=== PATIENT | male | born 1990 | race African-American/Black ===

== ENCOUNTER 2016-08-28 19:19 | Emergency (ER) | payer OTHER ==
[~2016-08-28] VITALS: Ht 165.1 cm; Wt 73.3 kg
[2016-08-28 19:23] VITALS: BP 135/79; PULSE 88; TEMP 37.7; Ht 165.1 cm; Wt 73.3 kg
[2016-08-28 19:25] VITALS: O2SAT 96
[2016-08-29] MEDS ORDERED: PROPOFOL IV EMULSION 10 MG/ML 100 ML VIAL IV ONE (17:43)
[2016-08-31] MEDS ORDERED: AMOX875T PO (08:19)
[2016-08-31] MEDS ORDERED: OXYC-57 PO (08:19)
== END 2016-08-28 19:46 | disposition left against medical advice (07) ==
LOC: C.EDB 19:21
DX: J02.9 Acute pharyngitis, unspecified (principal)

== ENCOUNTER 2016-08-29 10:16 | Inpatient (IN) | payer SELFPAY ==
[~2016-08-29] VITALS: Ht 165.1 cm; Wt 72.3 kg
[2016-08-29] MEDS ORDERED: SODIUM CHLORIDE 0.9% 1000ML 1,000 ML IV STA (11:17)
[2016-08-29] MEDS ORDERED: AMPICILLIN/SULBACTAM SOD INJ 3,000 MG in SODIUM CHLORIDE 0.9% 100ML 100 ML IV ONE (11:30)
[2016-08-29] MEDS ORDERED: BENZOCAINE/TETRACAIN/BUTAM CAN 200 APPLN/20 GM CAN EXT STA (11:34)
[2016-08-29] MEDS ORDERED: LIDO/EPINEPHRINE/SOD BICARB 20 ML VIAL INFIL ONE (11:45)
[2016-08-29 11:50] LABS: BASO % 0.2 %; BASO ABS # 0.03 K/uL (0-0.2); COMPLETE YES; EOS % 1.3 %; HEMATOCRIT 38.4 % (42-52); IG% 0.4 %; LYMPH % 9.5 %; LYMPH ABS # 1.85 K/uL (1.2-3.4); MEAN CELL VOLUME 87.1 fL (80-100); MEAN CORPUSCULAR HEMOGLOBIN 30.6 pg (25-34); MEAN CORPUSCULAR HGB CONC 35.2 g/dl (32-36); MEAN PLATELET VOLUME 8.3 fL (7.4-10.4); MONO % 8.6 %; PLATELET COUNT 407 K/uL (130-400); RED BLOOD COUNT 4.41 M/uL (4.7-6.1); WHITE BLOOD COUNT 19.38 K/uL (4.8-10.8)
[2016-08-29 12:09] LABS: BUN/CREATININE RATIO 10.2 (10-20); CALCIUM 9.4 mg/dl (8.5-10.1); CREATININE 0.91 mg/dl (0.60-1.40); POTASSIUM 3.9 mmol/L (3.5-5.1)
[2016-08-29] MEDS: SODIUM CHLORIDE 0.45% 1000ML 1,000 ML IV SCH ×2 (12:45→17:52)
--- NOTE | 2016-08-29 12:50 | HISTORY & PHYSICAL EXAMINATION ---
DATE OF ADMISSION: 08/29/2016 DIAGNOSIS: Acute right peritonsillar abscess. HISTORY OF PRESENT ILLNESS: This 25-year-old -[place] male presented with acute onset of sore throat Saturday, became progressively worse, was seen here yesterday and sent home but again presented this morning with increasing sore throat and was found to have evidence of right peritonsillar abscess. Aspiration in the ER only yielded 0.2 mL of pus, so there must be loculated abscess behind the tonsil and he is being taken to the OR per patient request for I\T\D under general anesthesia. PAST MEDICAL HISTORY: MEDICAL PROBLEMS: None. PREVIOUS SURGERIES: Appendectomy by Dr. Cee in 2010. ALLERGIES: None known. MEDICATIONS: None. FAMILY HISTORY: Negative. SOCIAL HISTORY: Negative. REVIEW OF SYSTEMS: Otherwise negative. PHYSICAL EXAMINATION: GENERAL: WN, WD -[place]in[place]ian male in some distress with sore throat. HEAD: Normocephalic. EYES: Normal. EARS: Tympanic membranes intact with cerumen partially occluding the canals. NOSE: Nasal passages patent. THROAT: Oropharynx shows right soft palate bulging and redness with uvular edema and shift towards the left side. NECK: Supple with 1-2 cm nodes on the right side. HEART: RRR. LUNGS: Clear. ABDOMEN: Soft. GENITOURINARY: Deferred. EXTREMITIES: Full range of motion. IMPRESSION: Right peritonsillar abscess. PLAN: For incision and drainage in the OR.
[2016-08-29] MEDS ORDERED: ONDANSETRON INJ 2 MG/ML 2 ML VIAL IV STA (13:09)
[2016-08-29] MEDS ORDERED: MoRPHine SULFATE 4 MG/ML 1 ML CARP\\VIAL IV STA (13:09)
[2016-08-29] MEDS ORDERED: LIDOCAINE HCL 2% 2 ML VIAL (20MG/ML) ONE (16:01)
[2016-08-29] MEDS ORDERED: PROPOFOL IV EMULSION 10 MG/ML 20 ML VIAL IV ONE ×3 (16:01→18:05)
[2016-08-29] MEDS ORDERED: ONDANSETRON INJ 2 MG/ML 2 ML VIAL ONE (16:01)
[2016-08-29] MEDS ORDERED: DEXAMETHASONE SOD INJ 4 MG/ML VIAL ONE ×2 (16:01→18:05)
[2016-08-29] MEDS ORDERED: SUCCINYLCHOLINE 100MG/5ML SYR IV ONE (16:01)
[2016-08-29] MEDS ORDERED: FENTANYL CITRATE INJ 50 MCG/1 ML 2 ML VIAL ONE ×2 (16:01→17:08)
[2016-08-29] MEDS ORDERED: MIDAZOLAM HCL 1 MG/ML 2ML VIAL ONE ×2 (16:07→17:14)
[2016-08-29] MEDS ORDERED: BUPIVACAINE/EPINEPHRINE 0.5% MPF 1:200,000 30 ML VIAL ONE (16:32)
[2016-08-29] MEDS ORDERED: ONDANSETRON INJ 2 MG/ML 2 ML VIAL IV PRN ×2 (18:00)
[2016-08-29] MEDS ORDERED: FENTANYL CITRATE INJ 50 MCG/1 ML 2 ML VIAL IV PRN (18:00)
[2016-08-29] MEDS ORDERED: MoRPHine SULFATE 10 MG/ML CARP/VIAL IV PRN (18:00)
[2016-08-29] MEDS ORDERED: MoRPHine SULFATE 4 MG/ML 1 ML CARP\\VIAL IV PRN (18:00)
[2016-08-29] MEDS ORDERED: ATROPINE SULFATE 0.1 MG/ML 5ML SYR IV PRN (18:00)
[2016-08-29] MEDS ORDERED: ESMOLOL HCL 10 MG/ML 10 ML VIAL ONE (18:05)
[2016-08-29] MEDS ORDERED: PHENYLEPHRINE 100MCG/ML 5ML SYR ONE (18:05)
--- NOTE | 2016-08-29 18:11 | Anesthesiology Progress Note ---
Anesthesia Progress Note Date of Service Aug 29, 2016. Progress Notes Patient with peritonsillar abscess taken to OR for I&D, after induction we established that we were able to mask ventilate without problem, then with a Denny 2 no view of cords was achieved due to swelling. We again were able to mask ventilate without trouble. A Glidescope 3 was used and he was noted to also have epiglottitis, and due to the swelling from the tonsillar area and the large swollen epiglottis, no view of the glottic opening was possible. Again we were able to mask ventilate the patient. With a Mac 3 blade I was able to achieve a similar view and had a little more room to manipulate a bougie which I was able to pass blindly. An ETT was passed over the bougie without problem, position confirmed with ETCO2 and auscultation. His oxygenation was maintained throughout. Dr Vega performed the I&D of the abscess and due to the epiglottitis we decided to leave the patient intubated, so he was taken uneventfully to the ICU with O2 and monitors. Dr Swanson had already spoken to the ICU physician so he is aware of the situation. Currently stable and intubated in the ICU.
[2016-08-29] MEDS ORDERED: AMPICILLIN/SULBACTAM SOD INJ 3,000 MG in SODIUM CHLORIDE 0.9% 100ML 100 ML IV SCH (18:15)
[2016-08-29] MEDS ORDERED: MIDAZOLAM HCL 5 MG/ML 1 ML VIAL IV PRN (18:15)
[2016-08-29] MEDS ORDERED: FENTANYL 1250MCG/250ML NSS 250 ML IV PRN ×2 (18:15→20:00)
[2016-08-29] MEDS ORDERED: PROPOFOL IV EMULSION 10 MG/ML 100 ML VIAL IV SCH (18:21)
--- NOTE | 2016-08-29 18:42 | EMERGENCY ROOM VISIT NOTE ---
History Report prepared by Scotty: Padmini Norman Under the Supervision of: Dr. Chas Wade M.D. First contact with patient: 10:50 Chief Complaint: SORETHROAT Stated Complaint: SORETHROAT History of Present Illness The patient is a 25 year old male who presents to the Emergency Room with complaints of a persistent sore throat that started a week ago. This sore throat is worse with swallowing. It is worse on the right side. Associated symptoms include increased drooling, mild headaches, body aches, fatigue, and a cough. He also notes changes in his voice. The patient was in the ED yesterday but he left before he was evaluated by a physician because of the wait. The patient denies vomiting. Source of History: patient Onset: A week ago Position: throat Quality: other (sore) Timing: other (Persistent ) Modifying Factors (Worsening): other (Swallowing ) Associated Symptoms: + cough, + headache, No vomiting Note: Additional associated symptoms include: increased drooling, body aches, and fatigue. Review of Systems See HPI for pertinent positives & negatives. A total of 10 systems reviewed and were otherwise negative. Past Medical & Surgical Medical Problems: (1) Bee sting (2) Epiglottitis (3) No Known Active Medical Problems Surgical Problems: (1) History of appendectomy Family History No pertinent family history Social History Smoking Status: Never Smoker Smokeless Tobacco Use: No Alcohol Use: occasionally Drug Use: none Housing Status: lives with roommate Current/Historical Medications No Active Prescriptions or Reported Meds Allergies Coded Allergies: No Known Allergies (Unverified , 08/29/16) Physical Exam Vital Signs Date Time Temp Pulse Resp B/P Pulse Ox O2 Delivery O2 Flow Rate FiO2 08/29/16 15:00 36.7 94 24 136/78 94 Room Air 08/29/16 14:41 94 18 154/74 96 08/29/16 14:34 94 18 154/74 96 Room Air 08/29/16 13:30 102 18 150/82 95 Room Air 08/29/16 11:50 72 18 153/72 98 Room Air 08/29/16 11:05 98 Room Air 08/29/16 10:27 37.5 77 18 130/79 98 Room Air 08/29/16 10:27 98 Room Air Physical Exam Constitutional: Vital signs reviewed. Eyes: Pupils are equal round reactive to light. Conjunctiva are noninjected. ENT: Trismus, swelling to uvula and right peritonsillar region with drooling. Right sided cervical lymphadenopathy with tenderness. Mucous membranes are moist. Respiratory: Clear to auscultation bilaterally. Breath sounds are equal bilaterally. Cardiovascular: Regular rate and rhythm. No rubs or gallops. GI: Soft, nondistended and nontender. Bowel sounds are present. Musculoskeletal: No peripheral edema. Integumentary: No cyanosis. Neurological: The patient is awake and alert. No focal deficits. Psychiatric: Normal affect. Medical Decision & Procedures Laboratory Results 08/29/16 11:37 Red Blood Count 4.41, Mean Corpuscular Volume 87.1, Mean Corpuscular Hemoglobin 30.6, Mean Corpuscular Hemoglobin Concent 35.2, Mean Platelet Volume 8.3, Neutrophils (%) (Auto) 80.0, Lymphocytes (%) (Auto) 9.5, Monocytes (%) (Auto) 8.6, Eosinophils (%) (Auto) 1.3, Basophils (%) (Auto) 0.2, Neutrophils # (Auto) 15.51, Lymphocytes # (Auto) 1.85, Monocytes # (Auto) 1.66, Eosinophils # (Auto) 0.26, Basophils # (Auto) 0.03 08/29/16 11:37 Test 08/29/16 11:37 White Blood Count 19.38 K/uL (4.8-10.8) Red Blood Count 4.41 M/uL (4.7-6.1) Hemoglobin 13.5 g/dL (14.0-18.0) Hematocrit 38.4 % (42-52) Mean Corpuscular Volume 87.1 fL (80-100) Mean Corpuscular Hemoglobin 30.6 pg (25-34) Mean Corpuscular Hemoglobin Concent 35.2 g/dl (32-36) Platelet Count 407 K/uL (130-400) Mean Platelet Volume 8.3 fL (7.4-10.4) Neutrophils (%) (Auto) 80.0 % Lymphocytes (%) (Auto) 9.5 % Monocytes (%) (Auto) 8.6 % Eosinophils (%) (Auto) 1.3 % Basophils (%) (Auto) 0.2 % Neutrophils # (Auto) 15.51 K/uL (1.4-6.5) Lymphocytes # (Auto) 1.85 K/uL (1.2-3.4) Monocytes # (Auto) 1.66 K/uL (0.11-0.59) Eosinophils # (Auto) 0.26 K/uL (0-0.5) Basophils # (Auto) 0.03 K/uL (0-0.2) RDW Standard Deviation 37.5 fL (36.4-46.3) RDW Coefficient of Variation 11.6 % (11.5-14.5) Immature Granulocyte % (Auto) 0.4 % Immature Granulocyte # (Auto) 0.07 K/uL (0.00-0.02) Anion Gap 13.0 mmol/L (3-11) Est Creatinine Clear Calc Drug Dose 106.1 ml/min Estimated GFR () 133.4 Estimated GFR (Non- 115.1 BUN/Creatinine Ratio 10.2 (10-20) Calcium Level 9.4 mg/dl (8.5-10.1) Monoscreen NEG (NEG) Laboratory results as reviewed by me. Medications Administered Medications (Trade) Dose Ordered Sig/Shaun Route Start Time Stop Time Status Last Admin Dose Admin Sodium Chloride 1,000 ml @ 999 mls/hr Q1H1M STAT IV 08/29/16 11:17 08/29/16 12:17 DC 08/29/16 11:39 999 MLS/HR Ampicillin Sodium/ Sulbactam Sodium 3000 mg/Sodium Chloride 108 ml @ 200 mls/hr ONE ONCE IV 08/29/16 11:30 08/29/16 12:02 DC 08/29/16 11:48 200 MLS/HR Sodium Chloride (1/2 Nss 1000ml) 1,000 ml @ 100 mls/hr Q10H IV 08/29/16 12:45 09/28/16 12:44 08/29/16 17:52 100 MLS/HR Morphine Sulfate (MoRPHine SULFATE INJ) 4 mg NOW STAT IV 08/29/16 13:09 08/29/16 13:10 DC 08/29/16 13:32 4 MG Ondansetron HCl (Zofran Inj) 4 mg NOW STAT IV 08/29/16 13:09 08/29/16 13:10 DC 08/29/16 13:31 4 MG Bupivacaine HCl/ Epinephrine Bitart (Sensorcaine/ Epinephrine 0.5% Mpf 1:200,000) 30 ml STK-MED ONCE .ROUTE 08/29/16 16:32 08/29/16 16:34 DC 08/29/16 16:46 5 ML ED Course 1053: The patient was evaluated in room B8. A complete history and physical exam was performed. 1117: Ordered Sodium Chloride 1,000 ml @ 999 mls/hr IV. 1130: Ampicillin Sodium/ Sulbactam Sodium 3,000 mg/ Sodium Chloride 108 ml @ 200 mls/hr IV. 1133: I discussed the patient's case with Dr. Vega (ENT). He will come in at noon to drain the patient's peritonsillar abscess. 1134: Ordered Cetacaine Can 1 appin EXT. 1145: Ordered Lidocaine/ Epinephrine 20 ml INFIL 1234: Dr. Vega was only able to aspirate 2 mm. He will take the patient to the OR later this afternoon. 1303: The patient is requesting more pain medications. He will go to the OR around 4:00. 1309: Ordered Zofran Injection 4 mg IV, Morphine Sulfate 4 mg IV. 1500: The patient is in the OR with Dr. Vega. Medical Decision This is a 25-year-old male who presents with a sore throat. Differential diagnosis includes strep pharyngitis, peritonsillar abscess, infectious mononucleosis, laryngitis, viral syndrome. I did perform a limited focused review of portions of the patient's old chart on the electronic medical record. The patient has had no recent pertinent visits to this hospital. I did evaluate the patient as noted above. On examination the patient has trismus and drooling and appears to have a right peritonsillar abscess. IV access was established. I did treat the patient with Unasyn IV. I did order and review the patient's blood work as noted in the electronic medical record. His white blood cell count is significantly elevated. He was given normal saline IV and morphine and Zofran for pain. I did consult Dr. Vega of ENT. He came into drain the abscess but was only able to get 2 mL of pus and decided that he will take the patient to the operating room for further drainage. Consults Time Called: 1100 Consulting Physician: Dr. Vega (ENT) Returned Call: 1133 I discussed the patient's case with Dr. Vega (ENT). He will come in at noon to drain the patient's peritonsillar abscess. Impression Primary Impression: Peritonsillar abscess Scribe Attestation The scribe's documentation has been prepared under my direct and personally reviewed by me in its entirety. I confirm that the note above accurately reflects all work, treatment, procedures, and medical decision making performed by me. Departure Information Dispostion Being Evaluated By Surgeon Prescriptions No Active Prescriptions or Reported Meds Referrals No Doctor, Assigned (PCP) Patient Instructions My [facility]
--- NOTE | 2016-08-29 18:46 | Critical Care Consultation ---
Critical Care Consultation Date of Consultation: Aug 29, 2016. Attending Physician: Milana Vega M.D. Reason for Consultation: Peritonsillar abscess w/ Epiglottitis s/p I&D History of Present Illness History is limited as patient is s/p intubation. No family is present. This is a 25 y/o M who apparently presented to the ED yesterday with a sore throat. He was not seen by a physician yesterday as he had left AMA (during the ER registration process). He presented to the ED again this morning with worsening sore throat. He was evaluated by ENT in the ED and was noted to have a right sided peritonsillar abscess and epiglottitis. He was not Dyspneic. An attempt was made to drain the abscess in the ED but yielded very little fluid. Decision was made to do an I&D under general anaesthesia. In the OR, 20 cc of pus was drained and cultured. He remained intubated and sedated upon transfer to the ICU No significant PMH Past Medical/Surgical History none- but cannot confirm Family History No pertinent family history unobtainable Social History Smoking Status: Never Smoker Allergies Coded Allergies: No Known Allergies (Unverified , 08/29/16) Home Medications No Active Prescriptions or Reported Meds Current Inpatient Medications Current Inpatient Medications Medications (Trade) Dose Ordered Sig/Shaun Route Start Time Stop Time Status Last Admin Dose Admin Sodium Chloride (1/2 Nss 1000ml) 1,000 ml @ 100 mls/hr Q10H IV 08/29/16 12:45 09/28/16 12:44 08/29/16 17:52 100 MLS/HR Ondansetron HCl (Zofran Inj) 4 mg ONE PRN IV 08/29/16 18:00 08/29/16 23:00 Atropine Sulfate (Atropine Sulfate 0.1MG/Ml Inj) 0.5 mg Q1M PRN IV 08/29/16 18:00 08/29/16 23:00 Fentanyl Citrate 25 mcg 25 mcg Q5M PRN IV 08/29/16 18:00 08/29/16 23:00 Ampicillin Sodium/ Sulbactam Sodium/ Sodium Chloride (Unasyn Inj/Nss 100ml) 108 ml @ 200 mls/hr Q6H IV 08/29/16 18:00 08/30/16 17:59 Ondansetron HCl (Zofran Inj) 4 mg Q4H PRN IV 08/29/16 18:00 09/28/16 17:59 Morphine Sulfate (MoRPHine SULFATE INJ) 4 mg Q1H PRN IV 08/29/16 18:00 09/12/16 17:59 Morphine Sulfate (MoRPHine SULFATE INJ) 8 mg Q1H PRN IV 08/29/16 18:00 09/12/16 17:59 Review of Systems unobtainable Physical Exam Date Time Temp Pulse Resp B/P Pulse Ox O2 Delivery O2 Flow Rate FiO2 08/29/16 15:00 36.7 94 24 136/78 94 Room Air 08/29/16 14:41 94 18 154/74 96 08/29/16 14:34 94 18 154/74 96 Room Air 08/29/16 13:30 102 18 150/82 95 Room Air 08/29/16 11:50 72 18 153/72 98 Room Air 08/29/16 11:05 98 Room Air 08/29/16 10:27 37.5 77 18 130/79 98 Room Air 08/29/16 10:27 98 Room Air General Appearance: + pertinent finding (intubated, sedated) Eyes: PERRL ENT: + pertinent finding (pharynx not visualized) Neck: + pertinent finding (Right sided adenopathy) Respiratory/Chest: lungs clear, normal breath sounds Cardiovascular: no edema, no gallop, no murmur, normal peripheral pulses, + tachycardia Abdomen/GI: normal bowel sounds, soft Extremities/Musculoskelatal: no pedal edema Laboratory Results Last 24 Hours Test 08/29/16 11:37 White Blood Count 19.38 K/uL Red Blood Count 4.41 M/uL Hemoglobin 13.5 g/dL Hematocrit 38.4 % Mean Corpuscular Volume 87.1 fL Mean Corpuscular Hemoglobin 30.6 pg Mean Corpuscular Hemoglobin Concent 35.2 g/dl Platelet Count 407 K/uL Mean Platelet Volume 8.3 fL Neutrophils (%) (Auto) 80.0 % Lymphocytes (%) (Auto) 9.5 % Monocytes (%) (Auto) 8.6 % Eosinophils (%) (Auto) 1.3 % Basophils (%) (Auto) 0.2 % Neutrophils # (Auto) 15.51 K/uL Lymphocytes # (Auto) 1.85 K/uL Monocytes # (Auto) 1.66 K/uL Eosinophils # (Auto) 0.26 K/uL Basophils # (Auto) 0.03 K/uL RDW Standard Deviation 37.5 fL RDW Coefficient of Variation 11.6 % Immature Granulocyte % (Auto) 0.4 % Immature Granulocyte # (Auto) 0.07 K/uL Sodium Level 136 mmol/L Potassium Level 3.9 mmol/L Chloride Level 101 mmol/L Carbon Dioxide Level 22 mmol/L Anion Gap 13.0 mmol/L Blood Urea Nitrogen 9 mg/dl Creatinine 0.91 mg/dl Est Creatinine Clear Calc Drug Dose 106.1 ml/min Estimated GFR () 133.4 Estimated GFR (Non- 115.1 BUN/Creatinine Ratio 10.2 Random Glucose 95 mg/dl Calcium Level 9.4 mg/dl Monoscreen NEG Assessment & Plan Peritonsillar abscess w/ epiglottitis s/p I&D Remains intubated and sedated Propofol infusion, Fentanyl infusion and Versed PRN Maintain Rass - 3 Plan to extubate tomorrow WBC count - 19 repeat labs Chest xray Unasyn 3 g q6h Decadron 8 mg TID x 48 hrs Maintenance IVF GI prophylaxis: Protonix DVT prophylaxis: SCDs, lovenox Lines/tubes- Peripheral, Painter Code: Full Resident Physician Supervision Note: Dr. Jeff Lorenz was resident physician during care of patient. I separately evaluated patient and did history and exam. I discussed the case with the resident and generally agree with the findings and plan. Patient critically ill due to epiglottitis with an extremely difficult airway per anesthesia and would be at risk for acute airway obstruction. Due to this fact we will keep him more sedated. Continue IV Unasyn, plan to switch to Augmentin when able to tolerate by mouth. Decadron for the epiglottitis for 48 hours to decrease swelling for extubation, head of the bed elevated to 30. I have personally spent 35 minutes of critical care time in the direct management of this patient. This is a life/limb threatening event. This includes time spent evaluating patient, direct bedside care, chart review, placing orders, interpretation of diagnostic studies, discussion with consultants, patient, and family members, as well as other required patient management activities. This time is exclusive of all separately billable procedures, and teaching time and separate from and in addition to any other critical care service time Resident Tracking Resident Involvement: Resident Care Provided Care Provided: Adult [facility] Medicine
[2016-08-29] MEDS: AMPICILLIN/SULBACTAM SOD INJ 3,000 MG in SODIUM CHLORIDE 0.9% 100ML 100 ML IV SCH ×2 (18:59→23:32)
[2016-08-29 19:00] VITALS: BP 140/72; PULSE 90; TEMP 36.8; O2SAT 40; O2SAT 50; Ht 165.1 cm; Wt 72.3 kg
[2016-08-29] MEDS ORDERED: MIDAZOLAM 125MG/250ML D5W 250 ML IV PRN (19:25)
[2016-08-29 20:00] VITALS: BP 135/71; PULSE 94; TEMP 37.1; O2SAT 97; O2SAT 98
--- NOTE | 2016-08-29 20:07 | DIAGNOSTIC IMAGING REPORT ---
CHEST ONE VIEW PORTABLE CLINICAL HISTORY: post-op dyspnea COMPARISON STUDY: 02/05/2011 FINDINGS: Endotracheal tube 3 cm above the maria de jesus. Bibasilar atelectatic and/or infiltrative change. There are no consolidative changes. Mid and upper lungs are considered clear. IMPRESSION: Endotracheal tube 3 cm both maria de jesus. Small bibasilar parenchymal infiltrative changes Electronically signed by: Santo An M.D. 08/29/2016 8:06 PM Dictated Date/Time: 08/29/2016 8:05 PM
[2016-08-29 20:10] LABS: ISTAT ALLEN TEST Pass; ISTAT ARTERIAL BLOOD GAS HCO3 26 meq/L (19-24); ISTAT ARTERIAL BLOOD GAS PCO2 39 mmHg (35-46); ISTAT ARTERIAL BLOOD GAS PO2 48 mmHg (80-95); ISTAT ARTERIAL BLOOD GAS pH 7.43 (7.35-7.45); ISTAT CARBON DIOXIDE 27 mEq/l (24-31); ISTAT DELIVERY SYSTEM Ventilator; ISTAT FIO2 50 %; ISTAT PEEP 5; ISTAT RATE 14; ISTAT SITE R Radial; VE 8.5; Vt 500
[2016-08-29 20:10] LABS: ISTAT ALLEN TEST Pass; ISTAT ARTERIAL BLOOD GAS HCO3 24 meq/L (19-24); ISTAT ARTERIAL BLOOD GAS PCO2 43 mmHg (35-46); ISTAT ARTERIAL BLOOD GAS PO2 166 mmHg (80-95); ISTAT ARTERIAL BLOOD GAS pH 7.36 (7.35-7.45); ISTAT CARBON DIOXIDE 26 mEq/l (24-31); ISTAT DELIVERY SYSTEM Ventilator; ISTAT FIO2 50 %; ISTAT PEEP 5; ISTAT RATE 14; ISTAT SITE R Radial; Vt 500
[2016-08-29 20:11] LABS: INR 1.3 (0.9-1.1); PARTIAL THROMBOPLASTIN RATIO 1.3; PROTHROMBIN TIME (PATIENT) 14.6 SECONDS (9.0-12.0)
[2016-08-29 22:03] VITALS: BP 127/68; PULSE 83; TEMP 36.8; O2SAT 97
[2016-08-29] MEDS: DEXAMETHASONE INJ 8 MG in SYRINGE 0 ML IV SCH (23:32)
[2016-08-29 23:59] VITALS: O2SAT 98
[2016-08-30] VITALS (13 sets, daily range): BP systolic 107–126; BP diastolic 54–77; PULSE 65–93; TEMP 36–37.1; O2SAT 92–99
[2016-08-30] MEDS: NORMOSOL R 1,000 ML IV SCH ×3 (01:28→20:17)
[2016-08-30 05:32] LABS: BASO % 0.1 %; BASO ABS # 0.02 K/uL (0-0.2); COMPLETE YES; HEMATOCRIT 33.8 % (42-52); IG% 0.7 %; LYMPH % 5.7 %; LYMPH ABS # 1.17 K/uL (1.2-3.4); MEAN CORPUSCULAR HEMOGLOBIN 30.5 pg (25-34); MEAN CORPUSCULAR HGB CONC 34.6 g/dl (32-36); MONO % 3.2 %; NEUT % 90.3 %; PLATELET COUNT 394 K/uL (130-400); RED BLOOD COUNT 3.84 M/uL (4.7-6.1); WHITE BLOOD COUNT 20.46 K/uL (4.8-10.8)
[2016-08-30 06:06] LABS: CALCIUM 8.5 mg/dl (8.5-10.1); CREATININE 0.91 mg/dl (0.60-1.40); POTASSIUM 4.3 mmol/L (3.5-5.1)
[2016-08-30] MEDS: AMPICILLIN/SULBACTAM SOD INJ 3,000 MG in SODIUM CHLORIDE 0.9% 100ML 100 ML IV SCH ×4 (06:43→23:32)
--- NOTE | 2016-08-30 07:04 | OPERATIVE REPORT ---
DATE OF OPERATION: 08/29/2016 PREOPERATIVE DIAGNOSIS: Right peritonsillar abscess. POSTOPERATIVE DIAGNOSIS: Same plus epiglottitis. PROCEDURE: Direct laryngoscopy after intubation by anesthesia followed by incision and drainage of right peritonsillar abscess. SURGEON: Dr. Vega. ANESTHESIA: General endotracheal. COMPLICATIONS: None. BLOOD LOSS: 20 mL HISTORY OF PRESENT ILLNESS: A 25-year-old -[place] male with acute onset of sore throat. Saturday he became progressively worse and was seen in the ER yesterday and sent home but again presented this morning with worsening sore throat. He was found to have evidence of a right peritonsillar abscess. Aspiration only yielded 0.2 mL of pus. Because of the possibility of a large abscess, he was brought to the operating room. DESCRIPTION OF PROCEDURE: The patient was brought to the operating room and placed in supine position. General endotracheal anesthesia was induced. This was done by Dr. navarro and Dr. Swanson because of difficult airway ending up using the bougie to find the airway and then intubating over the bougie. At this point, direct laryngoscopy was performed. The epiglottis was very edematous, approximately the size of a small grape. The left AE fold was also very swollen and the left arytenoid was swollen; however, the endolarynx appeared to have mobile vocal cords consistent with supraglottitis. At this point, mouth gag was placed. The right peritonsillar area was bulging. This was incised using a #12 blade and the abscess cavity was opened using the tonsillar hemostat. Then approximately 20 mL of pus was expressed. Cultures were taken and abscess cavity was irrigated clean with saline. The patient tolerated the procedure well, but because of the epiglottic swelling consistent with epiglottitis, he was kept paralyzed and taken to ICU. I attest to the content of the Intraoperative Record and any orders documented therein. Any exceptions are noted below. ELAINED
--- NOTE | 2016-08-30 07:41 | Medical Student: [facility] ---
Med Student History & Physical Date & Time of Service: Aug 30, 2016 at 07:42 Chief Complaint: Epiglottitis Primary Care Physician: No Doctor, Assigned History of Present Illness Source: hospital records Pt is a 25 yo male with no known medical history who presented to the ED two days ago for sore throat, however left before he was seen by a physician. He returned to the ED yesterday with increased pain with swallowing, drooling, fever, chills and fatigue. On exam he was found to have a right peritonsilar abcess will uvular deviation, ENT attempted to drain the abscess in the ED, however only aspirated 2 cc's of fluid. For the pt's comfort he was taken to the OR for I&D under sedation. The intubation was difficult, requiring the use of a bougie to find the airway dt epiglottis. The abscess was then drained of 20 mLs of pus. Following the I&D, pt was transported to the ICU, still intubated. His vitals have been stable. He has required restraints as he pulls at the wires and tubing. This morning he is awake and alert - opening his eyes to verbal stimuli and responding appropriately to commands. He denies pain at this time. Past Medical/Surgical History Medical Problems: (1) Mood disorder Status: Acute (2) Peritonsillar abscess Status: Acute Surgical Problems: (1) History of appendectomy Status: Resolved Social History Smoking Status: Unknown if Ever Smoked Smokeless Tobacco Use: No Drug Use: none Immunizations History of Influenza Vaccine: No History of Tetanus Vaccine?: Unknown History of Pneumococcal: No History of Hepatitis B Vaccine: Unknown Allergies Coded Allergies: No Known Allergies (Unverified , 08/29/16) Medications Amoxicillin & Pot Clavulanate (Augmentin 875-125 mg), 875 MG PO BID Oxycodone/Acetaminophen 5MG/325MG (Percocet 5MG/325MG), 1-2 TABLETS PO Q4H PRN for Pain Physical Exam Vital Signs (24 Hours) Date Time Temp Pulse Resp B/P Pulse Ox O2 Delivery O2 Flow Rate FiO2 08/30/16 05:59 65 14 113/55 98 Mechanical Ventilator 35 08/30/16 05:14 35 08/30/16 04:03 36.5 70 14 113/54 99 Mechanical Ventilator 35 08/30/16 04:00 98 Mechanical Ventilator 08/30/16 04:00 35 08/30/16 02:03 36.5 73 14 116/64 99 Mechanical Ventilator 35 08/30/16 01:33 35 08/30/16 00:03 80 14 118/59 97 Mechanical Ventilator 35 08/29/16 23:59 35 08/29/16 23:59 98 Mechanical Ventilator 08/29/16 22:27 35 08/29/16 22:03 36.8 83 20 127/68 97 Mechanical Ventilator 35 08/29/16 20:01 35 08/29/16 20:00 37.1 94 20 135/71 97 Mechanical Ventilator 40 08/29/16 20:00 98 Mechanical Ventilator 08/29/16 20:00 35 08/29/16 19:40 50 08/29/16 19:00 36.8 90 16 140/72 50 Mechanical Ventilator 08/29/16 18:15 38.7 154 20 141/84 94 Mechanical Ventilator 50 08/29/16 18:05 100 14 142/81 97 Mechanical Ventilator 50 08/29/16 18:00 50 08/29/16 17:55 106 14 130/55 100 Mechanical Ventilator 50 08/29/16 17:44 99 14 95/35 99 Mechanical Ventilator 50 08/29/16 17:43 38.7 107 14 91/37 99 Mechanical Ventilator 50 08/29/16 15:00 36.7 94 24 136/78 94 Room Air 08/29/16 14:41 94 18 154/74 96 08/29/16 14:34 94 18 154/74 96 Room Air 08/29/16 13:30 102 18 150/82 95 Room Air 08/29/16 11:50 72 18 153/72 98 Room Air 08/29/16 11:05 98 Room Air 08/29/16 10:27 37.5 77 18 130/79 98 Room Air 08/29/16 10:27 98 Room Air General Appearance: WD/WN, + pertinent finding (on Ventilator) Head: normocephalic, atraumatic Eyes: PERRL, EOMI Neck: supple, no adenopathy Respiratory/Chest: lungs clear, normal breath sounds Cardiovascular: regular rate, rhythm, no JVD, no murmur, normal peripheral pulses Abdomen/GI: soft, no organomegaly Extremities/Musculoskelatal: normal inspection, no pedal edema Neurologic/Psych: no motor/sensory deficits, alert Skin: normal color, warm/dry, no rash Diagnostics Laboratory Results Results Past 24 Hours Test 08/29/16 11:37 08/29/16 19:51 08/29/16 19:55 08/29/16 19:58 Range/Units White Blood Count 19.38 4.8-10.8 K/uL Red Blood Count 4.41 4.7-6.1 M/uL Hemoglobin 13.5 14.0-18.0 g/dL Hematocrit 38.4 42-52 % Mean Corpuscular Volume 87.1 80-100 fL Mean Corpuscular Hemoglobin 30.6 25-34 pg Mean Corpuscular Hemoglobin Concent 35.2 32-36 g/dl Platelet Count 407 130-400 K/uL Mean Platelet Volume 8.3 7.4-10.4 fL Neutrophils (%) (Auto) 80.0 % Lymphocytes (%) (Auto) 9.5 % Monocytes (%) (Auto) 8.6 % Eosinophils (%) (Auto) 1.3 % Basophils (%) (Auto) 0.2 % Neutrophils # (Auto) 15.51 1.4-6.5 K/uL Lymphocytes # (Auto) 1.85 1.2-3.4 K/uL Monocytes # (Auto) 1.66 0.11-0.59 K/uL Eosinophils # (Auto) 0.26 0-0.5 K/uL Basophils # (Auto) 0.03 0-0.2 K/uL RDW Standard Deviation 37.5 36.4-46.3 fL RDW Coefficient of Variation 11.6 11.5-14.5 % Immature Granulocyte % (Auto) 0.4 % Immature Granulocyte # (Auto) 0.07 0.00-0.02 K/uL Sodium Level 136 136-145 mmol/L Potassium Level 3.9 3.5-5.1 mmol/L Chloride Level 101 98-107 mmol/L Carbon Dioxide Level 22 21-32 mmol/L Anion Gap 13.0 3-11 mmol/L Blood Urea Nitrogen 9 7-18 mg/dl Creatinine 0.91 0.60-1.40 mg/dl Est Creatinine Clear Calc Drug Dose 106.1 ml/min Estimated GFR () 133.4 Estimated GFR (Non- 115.1 BUN/Creatinine Ratio 10.2 10-20 Random Glucose 95 70-99 mg/dl Calcium Level 9.4 8.5-10.1 mg/dl Monoscreen NEG NEG Blood Gas Sample Site R Radial R Radial Bedside Blood Gas pH (LAB) 7.43 7.36 7.35-7.45 Bedside Blood Gas pCO2 (LAB) 39 43 35-46 mmHg Bedside Blood Gas pO2 (LAB) 48 166 80-95 mmHg Bedside Blood Gas HCO3 (LAB) 26 24 19-24 meq/L Bedside Blood Gas Total CO2 27 26 24-31 mEq/l Bedside Blood Gas Base Excess (LAB) 2.0 -1.0 -9-1.8 meq/L Bedside Blood Gas O2 Saturation 85.0 99.0 90-95 % Torito Test Pass Pass Oxygen Delivery Device Ventilator Ventilator Bedside Oxygen Rate (breaths/min) 14 14 Blood Gas Minute Ventilation 8.5 Bedside FiO2 50 50 % Blood Gas Tidal Volume 500 500 Blood Gas PEEP 5 5 Prothrombin Time 14.6 9.0-12.0 SECONDS Prothromb Time International Ratio 1.3 0.9-1.1 Activated Partial Thromboplast Time 33.3 21.0-31.0 SECONDS Partial Thromboplastin Ratio 1.3 Test 08/30/16 05:23 Range/Units White Blood Count 20.46 4.8-10.8 K/uL Red Blood Count 3.84 4.7-6.1 M/uL Hemoglobin 11.7 14.0-18.0 g/dL Hematocrit 33.8 42-52 % Mean Corpuscular Volume 88.0 80-100 fL Mean Corpuscular Hemoglobin 30.5 25-34 pg Mean Corpuscular Hemoglobin Concent 34.6 32-36 g/dl Platelet Count 394 130-400 K/uL Mean Platelet Volume 8.0 7.4-10.4 fL Neutrophils (%) (Auto) 90.3 % Lymphocytes (%) (Auto) 5.7 % Monocytes (%) (Auto) 3.2 % Eosinophils (%) (Auto) 0.0 % Basophils (%) (Auto) 0.1 % Neutrophils # (Auto) 18.47 1.4-6.5 K/uL Lymphocytes # (Auto) 1.17 1.2-3.4 K/uL Monocytes # (Auto) 0.65 0.11-0.59 K/uL Eosinophils # (Auto) 0.00 0-0.5 K/uL Basophils # (Auto) 0.02 0-0.2 K/uL RDW Standard Deviation 38.2 36.4-46.3 fL RDW Coefficient of Variation 11.8 11.5-14.5 % Immature Granulocyte % (Auto) 0.7 % Immature Granulocyte # (Auto) 0.15 0.00-0.02 K/uL Sodium Level 141 136-145 mmol/L Potassium Level 4.3 3.5-5.1 mmol/L Chloride Level 104 98-107 mmol/L Carbon Dioxide Level 27 21-32 mmol/L Anion Gap 10.0 3-11 mmol/L Blood Urea Nitrogen 13 7-18 mg/dl Creatinine 0.91 0.60-1.40 mg/dl Est Creatinine Clear Calc Drug Dose 106.1 ml/min Estimated GFR () 133.4 Estimated GFR (Non- 115.1 BUN/Creatinine Ratio 14.0 10-20 Random Glucose 131 70-99 mg/dl Calcium Level 8.5 8.5-10.1 mg/dl Microbiology Results 08/29/16 MRSA DNA Surveillance Screen - Final, Complete Specimen Negative for MRSA by DNA Probe 08/29/16 Gram Stain, Received Pending 08/29/16 Bacterial Culture, Received Pending Impression Assessment and Plan Pt is a 25 yo male with no significant medical history who presented to the ED yesterday with a right peritonsillar abscess that was drained and epiglottis that required intubation. Neurologic * Awakens to verbal stimuli and follows commands appropriately despite sedation on 6 mg of Versed IV while intubated. CAM ICU Negative. * Increase versed to 10 mg to maintain adequate sedation while intubated. * Fentanyl 75 mcgs IV, scheduled, for pain. * Morphine Sulfate 4mg or 8 mg, PRN, for pain. Cardiovascular * Normotensive and normal heart rate. No current or home medications for blood pressure or rate control. Respiratory * Currently Intubated - RR 14, FiO2 35, PEEP 5, Peak Flow 60L. * Will monitor epiglottic swelling - as it improves will consider extubation. * Currently on Dexamethasone 8 mg for swelling. * CXR indicates possible PNA - Continue Ampicillin/Sulbactam 3,000 mg IV. Renal * Painter Catheter in place * Continue to monitor I's and O's. * Normal Electrolytes GI * Normosol infusion at 100 mls/hr while intubated. * Consider soft food diet with aspiration precautions as tolerated when extubated. Infectious Disease * WBC is 20.46 today - likely dt steroids and possible PNA. * Continue Unasyn 3,000 mg IV. * Cx's pending from I&D. Endo * Elevated blood glucose of 132 today. Likely 2/2 steroids. * Continue to monitor blood glucose levels as per nursing protocol. Hematology * H&H slightly low following surgery - does not require intervention at this time. * CBC daily to monitor levels. Fluids * Normosol 100 mLs/hr. Dispo: remain in ICU Full Resuscitation Lovenox 40 mg q day VTE prophylaxis Note Medical student Supervision Note: Student Doctor Michelle Kramer MS-III evaluated care of patient. I separately evaluated patient and did a history and exam. I discussed the case with the student doctor and generally agree with the findings and plan. Please see critical care progress note for further details
--- NOTE | 2016-08-30 08:06 | DIAGNOSTIC IMAGING REPORT ---
CHEST ONE VIEW PORTABLE HISTORY: intubation COMPARISON: Chest 08/29/2016. FINDINGS: The endotracheal tube terminates prostate 2.5 cm from the maria de jesus. No pneumothorax. No pleural effusions. The heart is stable in size. There are patchy bibasilar airspace opacities, unchanged. The upper lung zones remain clear. IMPRESSION: 1. The endotracheal tube terminates 2.5 cm from the maria de jesus. 2. Patchy bibasilar airspace opacities persist. This likely represents a pneumonia. Electronically signed by: Jorge James M.D. 08/30/2016 8:05 AM Dictated Date/Time: 08/30/2016 8:03 AM
[2016-08-30] MEDS: DEXAMETHASONE INJ 8 MG in SYRINGE 0 ML IV SCH ×3 (08:55→20:21)
[2016-08-30] MEDS: ENOXAPARIN 40 MG/0.4 ML SYR SQ SCH (08:55)
[2016-08-30] MEDS ORDERED: MIDAZOLAM HCL 1 MG/ML 2ML VIAL ONE (09:43)
[2016-08-30] MEDS ORDERED: FENTANYL CITRATE INJ 50 MCG/1 ML 2 ML VIAL ONE (09:43)
[2016-08-30] MEDS ORDERED: MIDAZOLAM HCL 5 MG/ML 1 ML VIAL IV STA (09:50)
[2016-08-30] MEDS ORDERED: FENTANYL CITRATE INJ 50 MCG/1 ML 2 ML VIAL IV ONE (10:00)
[2016-08-30] MEDS ORDERED: PANTOprazole INJ 40 MG in SYRINGE 0 ML IV SCH (11:00)
--- NOTE | 2016-08-30 15:05 | Critical Care Progress Note ---
Critical Care Progress Note Date of Service Aug 30, 2016. ICU Day ICU Day Number: [address] Ceja Subjective Multiple projections 25-year-old male who presented to the ED with a sore throat and was found to have a peritonsillar abscess that required surgical drainage. After requiring a blind intubation over bougie patient remained intubated for safety of his airway due to swelling overnight. This morning patient was checked for air leak as well as direct laryngoscopy by Dr. Ceja; who stated that there was decreased swelling from previous day and he felt that it would be appropriate at lunch time today to turn off sedation with the plan to extubate this afternoon. When I visited the patient this morning he aroused to verbal medication and followed simple directions. He stated he was in no pain by nodding his head. He was able to move all extremities. Patient had no acute events overnight and is afebrile this morning. Review of systems could not fully be obtained due to patient sedation and intubation for this condition. Objective Vital Signs - as noted Laboratory Data - as noted Physical Exam: General - NAD, Intubated and Sedated Eyes - PERRL, EOMI No icterus, gaze conjugate ENT - Mucosa moist, no lesions or candidiasis Neck - Supple, trachea midline, no masses or lymphadenopathy, no JVD or bruits Lungs - No paradoxical chest wall movement, clear to auscultation bilaterally, no wheezes, rales, or rhonchi Heart - Reg rate and rhythm, No murmur, rubs, clicks, or gallops appreciated Abdomen - normoactive BS present, no bruits noted, tympanic to percussion, soft , nontender, nondistended, no organomegaly Extremities - No edema, pedal pulses intact Strength: Moves all extremities appropriately, left head off the bed for greater than 6 seconds CN:PERRL, EOMI, no facial asymmetry Assessment & Plan (1) Epiglottitis (2) Peritonsillar abscess Neuro: Patient denies pain, is sedated on 50 of fentanyl and 6 of Versed and intubated CAM ICU Negative * Sedation vacation planned for after lunch Resp/ENT: Intubated on vol assist control with a 7.0 ET tube at 24 cm at the lip: Settings 14/500/5/35% * Continue dexamethasone 8 mg IV 3 times a day for epiglottitis/inflammation from peritonsillar abscess * Continue Unasyn 3000 mg IV every 6 * following * Plan to extubate this afternoon, after air leak noted this morning; and visualization of improvement with direct laryngoscopy * Once extubated and provide supplemental oxygen as needed ID: WBC is 20.46; * R Peritonsillar abscess as noted above * ; consults it and following * Continue Unasyn as noted above CV: * Monitor on telemetry Fluids/Renal: BUN/creatinine within normal limits, Painter in place, 3.2 L positive * Continue Normosol at 100 mL per hour GI/Nutrition: * Discontinue Protonix IV once extubated * Bedside swallow when patient can tolerate * We'll revisit diet tomorrow Heme: H&H stable at 11.7/33.8, platelets 394 * Follow daily labs Endocrine: No known diagnosis of diabetes or thyroid issues * Accu-Checks per protocol, started insulin infusion for 2 blood sugars greater than 180 CCT: 32 Minutes; This time is exclusive of all separately billable procedures. Thank you for involving us in the care of this patient. Please refer to Dr. Anabell Ceja's addendum for further recommendations. I have personally evaluated and examined this patient. I agree with assessment and plan of Jeff Price PA-C. I performed a direct laryngoscopy prior to extubation well patient was heavily sedated. The epiglottis did not appear to have significant swelling, there was adequate space visualized around the endotracheal tube. Patient met extubation parameters and was successfully extubated observed in the ICU for greater than 4 hours did not have any significant stridor or hoarseness, is stable for downgraded to [facility] floor. Data Medications: Current Inpatient Medications Medications (Trade) Dose Ordered Sig/Shaun Route Start Time Stop Time Status Last Admin Dose Admin Ampicillin Sodium/ Sulbactam Sodium/ Sodium Chloride (Unasyn Inj/Nss 100ml) 108 ml @ 200 mls/hr Q6H IV 08/29/16 18:00 09/08/16 17:59 08/30/16 11:42 200 MLS/HR Ondansetron HCl (Zofran Inj) 4 mg Q4H PRN IV 08/29/16 18:00 09/28/16 17:59 Morphine Sulfate (MoRPHine SULFATE INJ) 4 mg Q1H PRN IV 08/29/16 18:00 09/12/16 17:59 Morphine Sulfate 8 mg 8 mg Q1H PRN IV 08/29/16 18:00 09/12/16 17:59 Dexamethasone Sodium Phosphate 8 mg/Syringe 2 ml @ 1 mls/min TID IV 08/29/16 21:00 08/31/16 14:01 08/30/16 14:21 1 MLS/MIN Pantoprazole Sodium/Syringe (Protonix Inj/ Syringe) 10 ml @ 5 mls/min DAILY@11 IV 08/30/16 11:00 09/29/16 10:59 08/30/16 11:42 5 MLS/MIN Enoxaparin Sodium 40 mg 40 mg QAM SQ 08/30/16 09:00 09/29/16 08:59 08/30/16 08:55 40 MG Parenteral Electrolyte Solution 1,000 ml @ 100 mls/hr Q10H IV 08/29/16 19:30 09/28/16 19:29 08/30/16 08:55 100 MLS/HR Midazolam HCl 250 ml @ 0 mls/hr Q0M PRN IV 08/29/16 19:25 09/28/16 19:24 08/29/16 20:46 2 MLS/HR Fentanyl Citrate (Fentanyl Drip 1250MCG/250 Nss) 250 ml @ 0 mls/hr Q0M PRN IV 08/29/16 20:00 09/12/16 19:59 I & O: 24-Hour Column 08/30/16 07:59 Intake Total 2601 ml Output Total 1420 ml Balance 1181 ml Vital Signs: Date Time Temp Pulse Resp B/P Pulse Ox O2 Delivery O2 Flow Rate FiO2 08/30/16 14:00 72 14 110/55 99 Mechanical Ventilator 08/30/16 13:32 35 08/30/16 12:00 35 08/30/16 12:00 Mechanical Ventilator 08/30/16 12:00 37.1 70 14 109/58 98 Mechanical Ventilator 08/30/16 10:00 66 14 107/59 99 Mechanical Ventilator 08/30/16 08:00 Mechanical Ventilator 08/30/16 08:00 35 08/30/16 08:00 36.0 70 14 118/69 97 Mechanical Ventilator 35 08/30/16 07:43 35 08/30/16 05:59 65 14 113/55 98 Mechanical Ventilator 35 08/30/16 05:14 35 08/30/16 04:03 36.5 70 14 113/54 99 Mechanical Ventilator 35 08/30/16 04:00 98 Mechanical Ventilator 08/30/16 04:00 35 08/30/16 02:03 36.5 73 14 116/64 99 Mechanical Ventilator 35 08/30/16 01:33 35 08/30/16 00:03 80 14 118/59 97 Mechanical Ventilator 35 08/29/16 23:59 35 08/29/16 23:59 98 Mechanical Ventilator 08/29/16 22:27 35 08/29/16 22:03 36.8 83 20 127/68 97 Mechanical Ventilator 35 08/29/16 20:01 35 08/29/16 20:00 37.1 94 20 135/71 97 Mechanical Ventilator 40 08/29/16 20:00 98 Mechanical Ventilator 08/29/16 20:00 35 08/29/16 19:40 50 08/29/16 19:00 36.8 90 16 140/72 50 Mechanical Ventilator 08/29/16 18:15 38.7 154 20 141/84 94 Mechanical Ventilator 50 08/29/16 18:05 100 14 142/81 97 Mechanical Ventilator 50 08/29/16 18:00 50 08/29/16 17:55 106 14 130/55 100 Mechanical Ventilator 50 08/29/16 17:44 99 14 95/35 99 Mechanical Ventilator 50 08/29/16 17:43 38.7 107 14 91/37 99 Mechanical Ventilator 50 08/29/16 15:00 36.7 94 24 136/78 94 Room Air Laboratory Results: Last 24 Hours Test 08/29/16 19:51 08/29/16 19:55 08/29/16 19:58 08/30/16 05:23 Blood Gas Sample Site R Radial R Radial Bedside Blood Gas pH (LAB) 7.43 7.36 Bedside Blood Gas pCO2 (LAB) 39 mmHg 43 mmHg Bedside Blood Gas pO2 (LAB) 48 mmHg 166 mmHg Bedside Blood Gas HCO3 (LAB) 26 meq/L 24 meq/L Bedside Blood Gas Total CO2 27 mEq/l 26 mEq/l Bedside Blood Gas Base Excess (LAB) 2.0 meq/L -1.0 meq/L Bedside Blood Gas O2 Saturation 85.0 % 99.0 % Torito Test Pass Pass Oxygen Delivery Device Ventilator Ventilator Bedside Oxygen Rate (breaths/min) 14 14 Blood Gas Minute Ventilation 8.5 Bedside FiO2 50 % 50 % Blood Gas Tidal Volume 500 500 Blood Gas PEEP 5 5 Prothrombin Time 14.6 SECONDS Prothromb Time International Ratio 1.3 Activated Partial Thromboplast Time 33.3 SECONDS Partial Thromboplastin Ratio 1.3 White Blood Count 20.46 K/uL Red Blood Count 3.84 M/uL Hemoglobin 11.7 g/dL Hematocrit 33.8 % Mean Corpuscular Volume 88.0 fL Mean Corpuscular Hemoglobin 30.5 pg Mean Corpuscular Hemoglobin Concent 34.6 g/dl Platelet Count 394 K/uL Mean Platelet Volume 8.0 fL Neutrophils (%) (Auto) 90.3 % Lymphocytes (%) (Auto) 5.7 % Monocytes (%) (Auto) 3.2 % Eosinophils (%) (Auto) 0.0 % Basophils (%) (Auto) 0.1 % Neutrophils # (Auto) 18.47 K/uL Lymphocytes # (Auto) 1.17 K/uL Monocytes # (Auto) 0.65 K/uL Eosinophils # (Auto) 0.00 K/uL Basophils # (Auto) 0.02 K/uL RDW Standard Deviation 38.2 fL RDW Coefficient of Variation 11.8 % Immature Granulocyte % (Auto) 0.7 % Immature Granulocyte # (Auto) 0.15 K/uL Sodium Level 141 mmol/L Potassium Level 4.3 mmol/L Chloride Level 104 mmol/L Carbon Dioxide Level 27 mmol/L Anion Gap 10.0 mmol/L Blood Urea Nitrogen 13 mg/dl Creatinine 0.91 mg/dl Est Creatinine Clear Calc Drug Dose 106.1 ml/min Estimated GFR () 133.4 Estimated GFR (Non- 115.1 BUN/Creatinine Ratio 14.0 Random Glucose 131 mg/dl Calcium Level 8.5 mg/dl
[2016-08-30] MEDS ORDERED: NURSING VERBAL MED ORDER ONE (17:30)
[2016-08-30] MEDS ORDERED: ACETAMINOPHEN/HYDROCODONE ELIX 15 ML/CUP UDP PO PRN (18:15)
[2016-08-30] MEDS ORDERED: ACETAMINOPHEN SOLN 650MG/20.3 ML UDC PO PRN (18:15)
[2016-08-31 03:23] VITALS: BP 127/57; PULSE 65; TEMP 36.7; O2SAT 95
[2016-08-31] MEDS: NORMOSOL R 1,000 ML IV SCH (05:31)
[2016-08-31] MEDS: AMPICILLIN/SULBACTAM SOD INJ 3,000 MG in SODIUM CHLORIDE 0.9% 100ML 100 ML IV SCH (05:31)
[2016-08-31] MEDS ORDERED: NURSING VERBAL MED ORDER ONE (06:30)
[2016-08-31 08:08] VITALS: BP 130/82; PULSE 60; TEMP 36.8; O2SAT 95
[2016-08-31] MEDS ORDERED: AMOX875T PO (08:19)
[2016-08-31] MEDS ORDERED: OXYC-57 PO (08:19)
--- NOTE | 2016-08-31 08:21 | Discharge Instructions ---
Discharge Instructions Admission Reason for Admission: Epiglottitis Discharge Discharge Diagnosis / Problem: and right peritonsillar abcess Discharge Goals Goal(s): Therapeutic intervention Activity Recommendations Activity Limitations: resume your previous activity . Instructions / Follow-Up Instructions / Follow-Up ACTIVITY RECOMMENDATIONS: * During the first few days, activities should be limited. * Stay indoors for several days. * After 48 hours, activity can gradually be increased to normal activity. RETURN TO SCHOOL/WORK: * Return to school or work Saturday. * No physical education for two weeks. OVER THE COUNTER MEDICATIONS: * You may use Tylenol * Avoid aspirin or aspirin containing products, e.g. as they may increase bleeding. SPECIAL CARE INSTRUCTIONS: * * A sore throat is expected frequently accompanied by pain radiating to the ears. This is normal. * Expect bad breath until "scabs" are healed. * Notify the doctor if bleeding occurs, vomiting, temperature greater than 101 degrees Fahrenheit. Call or cell phone: . * If bleeding occurs, it is usually in the first 24 hours or after the 5th day. If unable to reach the doctor, go to the nearest Emergency Department. Special Diet: * Fluids are very important and should be encouraged to maintain adequate hydration. * To maintain nutrition, eat soft foods and after 48 hours the consistency of foods can be increased. Examples are jello, soup, pasta, ice cream and mashed foods. FOLLOW UP VISIT: Follow-up visit with Dr. Vega in 2 weeks. Please call to schedule if not already scheduled. Current Hospital Diet Patient's current hospital diet: Full Liquid Diet Discharge Diet Recommended Diet: Regular Diet Procedures Procedures Performed: Incision and Drainage Right Peritonsillar Abscess and Direct Laryngoscopy Pending Studies Studies pending at discharge: no Medical Emergencies . Who to Call and When: Medical Emergencies: If at any time you feel your situation is an emergency, please call 911 immediately. . Non-Emergent Contact Non-Emergency issues call your: Primary Care Provider . "Provider Documentation" section prepared by Milana Vega. VTE Core Measure Inpt VTE Proph given/why not?: COURT [facility] [place] Drug Monitoring Program Search Results: no issues identified
--- NOTE | 2016-08-31 08:38 | DISCHARGE SUMMARY ---
ADMITTING DIAGNOSIS: Right peritonsillar abscess. DISCHARGE DIAGNOSES: Same plus epiglottitis. HISTORY: A 25-year-old male who presented with acute onset of sore throat, presented to the Emergency Room, found to have right peritonsillar abscess; however, I was unable to drain the abscess except for less than 1 mL of pus. Therefore, he was brought to the operating room for I\T\D. However, in the operating room, he was found to have epiglottitis. Because of this, the endotracheal tube was left in place and he was observed in the intensive care unit. Overnight, he did well. The next morning direct laryngoscopy by Dr. Ceja showed that the epiglottis had become normal size and the abscess cavity was well drained and the tonsil was healing. The patient was treated with Unasyn and also sedation while he was on the vent. He had Painter in place. The Painter and the vent were removed last evening. This morning the patient is tolerating his diet well and will be discharged home with prescription for Augmentin to cover the group B strep that was cultured out from his abscess cavity. He will also be given 30 pills of Percocet in case he has pain. The patient is to return for followup in my office in 2 weeks. Further disposition including the possibility of tonsillectomy was discussed with the patient and he will decide regarding tonsillectomy. RAND
[2016-08-31 08:39] VITALS: O2SAT 95
[2016-08-31] MEDS: ENOXAPARIN 40 MG/0.4 ML SYR SQ SCH (09:00)
[2016-08-31 09:02] VITALS: BP 130/82; PULSE 60; TEMP 36.8; O2SAT 95
[2016-08-31] MEDS: DEXAMETHASONE INJ 8 MG in SYRINGE 0 ML IV SCH (09:07)
== END 2016-08-31 10:00 | disposition home or self-care (01) | DRG 133 ==
LOC: CANRESERV → ENRESERVTM → ENRESERVDT → C.EDB 10:19 → C.MSICU 18:03 → C.MSW 08-30 19:33
PROVIDERS: ADMIT Otolaryngology; ATTEND Otolaryngology
PROC: 0CJS8ZZ Inspection of Larynx, Via Natural or Artificial Opening Endoscopic (ICD-10-PCS; 2016-08-29)
PROC: 5A1935Z Respiratory Ventilation, Less than 24 Consecutive Hours (ICD-10-PCS; 2016-08-29)
PROC: 0BH17EZ Insertion of Endotracheal Airway into Trachea, Via Natural or Artificial Opening (ICD-10-PCS; 2016-08-29)
PROC: 0C9 Mouth and Throat, Drainage (ICD-10-PCS; principal; 2016-08-29 07:30)
DX: J36 Peritonsillar abscess (principal); J05.10 Acute epiglottitis without obstruction

== ENCOUNTER 2016-11-30 21:55 | Emergency (ER) | payer SELFPAY ==
[~2016-11-30] VITALS: Ht 165.1 cm; Wt 76.0 kg
[~2016-11-30 21:55] MED LIST: OXYC-57 PO
[2016-11-30 21:56] VITALS: BP 127/80; PULSE 62; TEMP 36.6; O2SAT 97; Ht 165.1 cm; Wt 76.0 kg
[2016-11-30] MEDS ORDERED: PENI-82 PO (22:12)
[2016-11-30] MEDS ORDERED: OXYC1TAB3 PO (22:12)
[2016-11-30] MEDS ORDERED: OXYCODONE IR HOME PACK PO ONE (22:15)
[2016-11-30] MEDS ORDERED: PENICILLIN HOME PACK 500MG (4 DOSES)BTL PO ONE (22:15)
--- NOTE | 2016-11-30 22:51 | EMERGENCY ROOM VISIT NOTE ---
History First contact with patient: 22:00 (Pal Clark PA) First contact with patient: 22:00 (Refugio Dias M.D.) Chief Complaint: DENTAL PAIN Stated Complaint: DENTAL PAIN Nursing Triage Summary: Right sided upper and lower gum pain. reports losing a tooth on the right lower side and has pain since. did not contact a dentist (Pal Clark PA) History of Present Illness The patient is a 26 year old male who presents to the Emergency Room with complaints of right upper and lower dental pain. The patient reports that he has been suffering this discomfort for the past week. He reports losing a filling out of one of his right lower molars approximately 2 weeks ago. He has not noticed any significant drainage or foul taste in the mouth. He currently does not have a dentist or insurance. He has previously applied for care at [facility] in [facility], but did not qualify because he made too much. He has since then changed jobs. A friend who is with him reports that they intend to go back tomorrow to [facility] in [facility] for reevaluation. He also applied for medical assistance but was denied for that as well. The patient has been taking ibuprofen and Tylenol without relief, and rates his discomfort a 10 out of 10. (Pal Clark PA) Review of Systems 10 system review was performed and was negative except for pertinent positives and negatives as indicated in history of present illness (Pal Clark PA) Past Medical/Surgical History Medical Problems: (1) Bee sting (2) Epiglottitis (3) No Known Active Medical Problems Surgical Problems: (1) History of appendectomy (Refugio Dias M.D.) Family History No pertinent family history (Pal Clark PA) No pertinent family history (Refugio Dias M.D.) Social History Smoking Status: Never Smoker Alcohol Use: occasionally Drug Use: none Housing Status: lives with roommate (Pal Clark PA) Current/Historical Medications Scheduled Penicillin V Potassium (Veetids), 500 MG PO QID Scheduled PRN Oxycodone Ir (Roxicodone Ir), 1-2 TAB PO Q4H PRN for Pain Oxycodone/Acetaminophen 5MG/325MG (Percocet 5MG/325MG), 1-2 TABLETS PO Q4H PRN for Pain Allergies Coded Allergies: No Known Allergies (Unverified , 08/29/16) Physical Exam Vital Signs Date Time Temp Pulse Resp B/P Pulse Ox O2 Delivery O2 Flow Rate FiO2 11/30/16 21:56 36.6 62 16 127/80 97 Room Air (Refugio Dias M.D.) Pain Rating (0-10): 5.0 (Pal Clark PA) Physical Exam CONSTITUTIONAL: Healthy and well nourished. Alert and oriented X 3 with positive affect. Patient appears in moderate discomfort from pain. HEENT: Normocephalic, atraumatic. Pupils equal, round and reactive. No facial edema noted. OROPHARYNX: Examination shows gingivitis without evidence for focal erythema, fluctuance or pointing of the right maxillary or mandibular region. He has multiple dental fillings. No evidence for Lazaro's angina or retropharyngeal abscess. LYMPHATICS: The patient has mild right submandibular lymphadenopathy. NECK: Full active range of motion without discomfort. RESPIRATORY: Clear to auscultation bilaterally with no wheezing, crackles, rhonchi or stridor. CARDIOVASCULAR: Regular rate and rhythm with no murmurs, rubs or gallops. INTEGUMENTARY: No rash or other significant dermatologic conditions noted. NEUROLOGIC: Facial sensations are intact. (Pal Clark PA) Medical Decision & Procedures Medications Administered Medications (Trade) Dose Ordered Sig/Shaun Route Start Time Stop Time Status Last Admin Dose Admin Penicillin V Potassium (Pen-Vk 500MG Home Pack) 1 homepack UD ONCE PO 11/30/16 22:15 11/30/16 22:16 DC 11/30/16 22:16 1 HOMEPACK Oxycodone HCl (Roxicodone Immediate Rel 5MG Home Pack) 1 homepack UD ONCE PO 11/30/16 22:15 11/30/16 22:16 DC 11/30/16 22:16 1 HOMEPACK (Refugio Dias M.D.) ED Course Patient history and physical exam were performed. Nurse's notes were reviewed. The patient was provided home packs and prescriptions for Pen-Vee K and OxyIR 5 mg. He was encouraged to return to [facility] for another prequalification evaluation. He was advised that he may need to follow-up with a local dentist until he goes through this qualification process. He is welcome to return to the emergency department for any progressively worsening infection, uncontrollable pain or fever. However, I did explain to the patient that emergency department would not provide ongoing chronic dental pain management. The patient was happy with plan of care, voiced understanding of all discharge instructions, and rated his pain a 7 out of 10 at the time of discharge. (Pal Clark PA) Impression Primary Impression: Pain, dental Departure Information Dispostion Home / Self-Care Condition GOOD Prescriptions Oxycodone Ir (Roxicodone Ir) 5 Mg Tab 1-2 TAB PO Q4H Y for Pain, #24 TAB For Initial Treatment Prov: Pal Clark PA 11/30/16 Penicillin V Potassium (Veetids) 500 Mg Tab 500 MG PO QID, #40 TAB Prov: Pal Clark PA 11/30/16 Forms HOME CARE DOCUMENTATION FORM, IMPORTANT VISIT INFORMATION Patient Instructions My [facility] Additional Instructions Finish all Pen-Vee K antibiotics as prescribed. Ibuprofen 800 mg and/or Tylenol 1000 mg every 8 hours. You may also alternate these medications for more effective pain relief: Ibuprofen --4 HRS--> Tylenol --4 HRS--> ibuprofen --4 HRS--> Tylenol .... OxyIR if needed for worse pain. Do not drink or drive while taking OxyIR. Soft foods. YOU MUST SEE A DENTIST FOR DEFINITIVE CARE. THE EMERGENCY DEPARTMENT DOES NOT PROVIDE DENTAL SERVICES, REFERRALS OR CHRONIC DENTAL PAIN MANAGEMENT. Call [facility] in [facility] for another pre-qualification evaluation.
== END 2016-11-30 22:21 | disposition home or self-care (01) ==
LOC: C.EDB 21:56 → C.EDA 22:21
DX: K08.89 Other specified disorders of teeth and supporting structures (principal)

== ENCOUNTER 2017-01-14 02:23 | Emergency (ER) | payer SELFPAY ==
[~2017-01-14] VITALS: Ht 165.1 cm; Wt 75.6 kg
[~2017-01-14 02:23] MED LIST changes: +OXYC1TAB3 PO; +PENI-82 PO
[2017-01-14 02:27] VITALS: Ht 165.1 cm; Wt 75.6 kg
[2017-01-14] MEDS ORDERED: IBUPROFEN 600 MG TAB PO STA (02:40)
[2017-01-14] MEDS ORDERED: PENI-82 PO (02:44)
[2017-01-14] MEDS ORDERED: PENICILLIN V POTASSIUM 250 MG TAB PO ONE (02:45)
[2017-01-14 02:56] VITALS: BP 141/91; PULSE 89; TEMP 36.7; O2SAT 97
--- NOTE | 2017-01-14 04:47 | EMERGENCY ROOM VISIT NOTE ---
History Report prepared by Scribjuan a: Aj Lee Under the Supervision of: Dr. Oscar Domingo D.O. First contact with patient: 02:33 Chief Complaint: DENTAL PAIN Stated Complaint: MOUTH SWOLLEN ON RIGHT SIDE History of Present Illness The patient is a 26 year old male who presents to the Emergency Room with complaints of constant dental pain that started a couple of months ago. He rates his pain as a 9/10 in severity. The patient states that he chipped a tooth on the right side of his mouth a couple of months ago, which caused him pain and swelling. He states that he reported to the ED when the symptoms first started and was discharged and given pain medication. He reports that he has not been able to go to the dentist since due to lack of insurance. The patient states that the swelling on his right side causes him pain whenever he tries to close his mouth. He admits that cold water helps alleviate some pain. The patient denies any medication allergies, headache, ear pain, change in vision, fevers, chest pain, shortness of breath, nausea, and vomiting. Source of History: patient Onset: a couple of months ago Position: teeth Symptom Intensity: 9/10 Timing: constant Modifying Factors (Worsening): other (closing mouth) Modifying Factors (Relieving): other (cold water) Review of Systems See HPI for pertinent positives & negatives. A total of 10 systems reviewed and were otherwise negative. Past Medical & Surgical Medical Problems: (1) Bee sting (2) Epiglottitis (3) No Known Active Medical Problems Surgical Problems: (1) History of appendectomy Family History No pertinent family history Social History Smoking Status: Never Smoker Alcohol Use: occasionally Drug Use: none Housing Status: lives with roommate Current/Historical Medications Scheduled Penicillin V Potassium (Veetids), 500 MG PO TID Allergies Coded Allergies: No Known Allergies (Unverified , 01/14/17) Physical Exam Vital Signs Date Time Temp Pulse Resp B/P (MAP) Pulse Ox O2 Delivery O2 Flow Rate FiO2 01/14/17 02:56 36.7 89 19 141/91 97 01/14/17 02:27 36.7 89 19 141/91 97 Room Air Physical Exam GENERAL: Sitting up in bed, alert, well appearing, well nourished, no distress, non-toxic EYE EXAM: normal conjunctiva, PERRL and EOM's grossly intact OROPHARYNX: Number 31 tooth broken on lateral aspect. No surrounding swelling. Tooth is tender to palpation. No submandibular tenderness/fullness. Tolerating secretions. Able to open mouth completely. Normal phonation. no exudate, no erythema, lips, buccal mucosa, and tongue normal and mucous membranes are moist NECK: supple, no nuchal rigidity, no adenopathy, non-tender LUNGS: Clear to auscultation. Normal chest wall mechanics HEART: no murmurs, S1 normal and S2 normal ABDOMEN: abdomen soft, non-tender, normo-active bowel sounds, no masses, no rebound or guarding. UPPER EXTREMITIES: upper extremities are grossly normal. LOWER EXTREMITIES: No pitting edema. NEURO EXAM: Normal sensorium Medical Decision & Procedures ED Course ED COURSE: Vital signs were reviewed and showed hypertensive The patients medical record was reviewed The above diagnostic studies were performed and reviewed. ED treatments and interventions as stated above. 0235: The patient was evaluated in room A10. A complete history and physical examination was performed. 0240: Upon reevaluation, the patient is feeling better. I discussed the findings and the treatment plan with the patient. He verbalizes agreement and understanding. He was discharged home. Medical Decision The differential diagnosis includes but is not limited to: Lazaro's angina, dental carry, apical abscess, pharyngeal abscess, peritonsillar abscess. Medication Reconciliation: I attest that I have personally reviewed the patient' s current medication list. Blood pressure screening: Patient was found to have an elevated blood pressure and was referred to their primary doctor for recheck and further treatment. Patient is a 26-year-old male who presents the ER for dental pain. #31 has been broken for the past 6 months. He notes that it has been gradually getting worse recently. Unable to see a dentist. On exam no obvious overt signs of infection. Tolerating secretions. Normal phonation. Full range of motion of neck. No fevers. Patient was given Motrin and penicillin. He is very unhappy as he did not receive narcotics. He was sitting up in the chair and otherwise well-appearing. I did not feel narcotics were warranted. Patient was given a referral to local dentist. Discussed with Pt concerning signs and symptoms to watch out for. Pt was instructed to follow up with their PCP and discussed with the patient their option to return to the ED at anytime for persistent or worsening symptoms. The appropriate anticipatory guidance and out-patient management, including indications for return to the emergency department, were explained at length to the patient and understood. Impression Primary Impression: Dentalgia Scribe Attestation The scribe's documentation has been prepared under my direction and personally reviewed by me in its entirety. I confirm that the note above accurately reflects all work, treatment, procedures, and medical decision making performed by me. Departure Information Dispostion Home / Self-Care Prescriptions Penicillin V Potassium (Veetids) 500 Mg Tab 500 MG PO TID, #30 TAB Prov: Oscar Domingo, DO 01/14/17 Referrals No Doctor, Assigned (PCP) Forms HOME CARE DOCUMENTATION FORM, IMPORTANT VISIT INFORMATION Patient Instructions My [facility] Additional Instructions Please follow up with your primary care doctor/dentist with in the next 24 hours. Any worsening of your symptoms, please return to the ED immediately. This includes swelling of your mouth, unable to swallow, trouble breathing, fevers greater than 100.4, or any other concerning signs or symptoms from your standpoint. Please contact Dr. Dank Balderas [facility] [phone] Please use Motrin or Tylenol as needed for pain.
== END 2017-01-14 02:58 | disposition home or self-care (01) ==
LOC: C.EDB 02:24 → C.EDA 02:58
DX: K08.89 Other specified disorders of teeth and supporting structures (principal)

== ENCOUNTER → 2018-02-27 | Day surgery (SDC) | payer OTHER ==
[2018-02-19 15:08] VITALS: Ht 165.1 cm; Wt 75.0 kg
--- NOTE | 2018-02-26 09:53 | History and Physical: Surg Cnt ---
History & Physical Date Feb 26, 2018. Chief Complaint tonsillar abcess History of Present Illness The patient is a 27 year old male with complaints of chronic tonsillitis/[employer]/ epiglottitis Past Medical/Surgical History Medical Problems: (1) Bee sting (2) Epiglottitis (3) No Known Active Medical Problems Surgical Problems: (1) History of appendectomy Additional History Hepatic Disease: No Endocrine Disorder: No Kidney Disease: No Hypertension: No Heart Disease: No Bleeding Tendencies: No Infectious Diseases: No Allergies Coded Allergies: No Known Allergies (Unverified , 02/19/18) Home Medications No Active Prescriptions or Reported Meds Physical Examination Skin: warm/dry, no rash Eyes: normal inspection, EOMI, sclerae normal ENT: normal ENT inspection, pharynx normal Head: normocephalic, atraumatic Neck: supple, no adenopathy, trachea midline Respiratory/Chest: lungs clear, normal breath sounds, no respiratory distress Cardiovascular: regular rate, rhythm, no edema, no murmur Abdomen / GI: normal bowel sounds, non tender Back: normal inspection Extremities: normal inspection, normal range of motion Neurologic/Psych: no motor/sensory deficits, alert, normal reflexes, oriented x 3 Diagnosis chronic tonsillitis Plan of Treatment adenotonsillectomy
[~2018-02-27] VITALS: Ht 165.1 cm; Wt 75.0 kg
[~2018-02-27] MED LIST changes: +CEFAZOLIN 1000MG IV PUSH 7.5 ML IV SCH; +LACTATED RINGER'S 1000ML 1,000 ML IV SCH; -OXYC-57 PO; -OXYC1TAB3 PO; -PENI-82 PO
== END ==
LOC: EDSTATUS 07:45 → C.PAT 12:46
PROVIDERS: ATTEND Otolaryngology
DX: J35.01 Chronic tonsillitis (principal)